=== PATIENT | male | born 1955 | race Caucasian/White ===

== ENCOUNTER 2019-12-11 06:35 | Day surgery (SDC) | payer MEDICARE ==
--- NOTE | 2019-12-10 10:12 | NUR ---
T-98.0 ORAL, BP-139/66 LEFT ARM, P-74, SAO2%-100 ROOM AIR
[2019-12-10 10:36] LABS: HEMOGLOBIN 12.6 g/dL (13.5-17.5); MCH 33.5 pg (26.0-34.0); MCHC 34.1 g/dL (31.0-37.0); MCV 98.4 fL (80.0-100.0); MEAN PLATELET VOLUME 8.7 fL (7.4-10.4); PLATELET COUNT 70 10x3/uL (130-400); RBC 3.76 10x6/uL (4.20-6.10); RDW 14.5 % (11.5-14.5); WBC 5.2 10x3/uL (4.8-10.8)
[2019-12-10 10:50] LABS: APTT 35.2 SECONDS (22.8-39.4); INR 1.23 (0.85-1.17); PROTIME 15.4 SECONDS (11.6-15.0)
[2019-12-10 10:59] LABS: ALBUMIN 3.6 g/dL (3.4-5.0); ALKALINE PHOSPHATASE 218 U/L (30-120); ALT (SGPT) 32 U/L (10-68); BILIRUBIN - TOTAL 2.04 mg/dL (0.2-1.3); CALC OSMOLALITY 278 mosm/kg (275-300); CALCIUM 8.7 mg/dL (8.5-10.1); CARBON DIOXIDE 27.6 mmol/L (21.0-32.0); CHLORIDE - SERUM 105 mmol/L (98-107); GLUCOSE 113 mg/dL (74-106); POTASSIUM - SERUM 4.2 mmol/L (3.5-5.1); PROTEIN - SERUM 6.3 g/dL (6.4-8.2); SODIUM 138 mmol/L (136-145); UREA NITROGEN 17 mg/dL (7-18); eGFR NON AFRICAN AMERICAN 79 mL/min (90-120)
[2019-12-10 11:38] LABS: PLATELET ESTIMATE DECREASED
[~2019-12-11] VITALS: Ht 172.7 cm; Wt 72.1 kg
--- NOTE | ~2019-12-11 | OP ---
PATIENT NAME: MIGUEL GRANT MEDICAL RECORD: [id number] :51 LOCATION:D.OPS ADMISSION DATE: SURGEON: MAYKEL STYLES MD DATE OF OPERATION: 12/11/2019 PREOPERATIVE DIAGNOSES: 1. Ventral hernia. 2. Chronic hepatitis C. 3. Liver cirrhosis. 4. Thrombocytopenia secondary to cirrhosis. 5. Nicotine dependence. POSTOPERATIVE DIAGNOSES: 1. Ventral hernia. 2. Chronic hepatitis C. 3. Liver cirrhosis. 4. Thrombocytopenia secondary to cirrhosis. 5. Nicotine dependence. PROCEDURE: Ventral hernia repair with 6.[address] mesh. SURGEON: Maykel Styles MD REPORT OF PROCEDURE: The patient's abdomen was prepped and draped in sterile fashion. A semicircular incision was made on the inferior aspect of the umbilicus. Electrocautery was used to dissect through the subcutaneous tissues. We came around the umbilical stalk and transected this to elevate the umbilicus. We encountered a large hernia sac which had no contents presently. This hernia sac was penetrated. We were able to inspect and see there was no sign of any bowel contents. We opened up this hernia sac and then using a clamp and tie technique, we transected the hernia sac at its base near the fascia using 3-0 silk ties. Once we had the hernia sac completely excised, it was sent off for permanent specimen. I then felt around on the abdominal wall and there was no sign of any other masses or lesions. The patient did have another small hernia defect just superior and to the right of this one. There was just a small fascial bridge present which was transected. This left a 2.5 cm diameter hernia defect. We undermined the fatty tissue off of the fascia and then inserted a 6.[address] mesh in an underlay fashion. This was sutured down on all 4 sides using interrupted 0 Prolenes times 4. The fascia was then closed longitudinally in the midline using a running 0 Vicryl. We irrigated out the wound with normal saline. We inspected and assured there was no sign of any active bleeding, which there was none. The umbilicus was then tacked down to the fascia using interrupted 3-0 Vicryls times 2. We infused 10 mL of 0.25% Marcaine plain into the surrounding tissues. The subcutaneous tissues were all reapproximated with interrupted 3-0 Vicryl and the skin was closed with running subcutaneous 5-0 Monocryl. COMPLICATIONS: None. CONDITION: Stable. ANESTHESIA: General endotracheal and local. BLOOD LOSS: Minimal. OPERATIVE REPORT [id number] MIGUEL GRANT TRANSINT:[id number] Voice Confirmation ID: [id number] DOCUMENT ID: [id number] MAYKEL STYLES MD CC: KEVIN BLANKENSHIP [id number] DICTATION DATE: 12/11/19940 [employer] TECHNICAL DIRECTOR: 12/11/19 1520 [facility] 12/11/19 [id number] [place] [address]
[~2019-12-11 06:35] MED LIST: ALDACTONE100 MG PO; FUROSEMIDE40 MG PO
[2019-12-11 07:44] VITALS: BP 126/65; Ht 172.7 cm; Wt 72.1 kg
[2019-12-11] MEDS ORDERED: HYDROCODONE-IB1 EAC3 PO (09:35)
--- NOTE | 2019-12-11 10:18 | NUR ---
1010 ICE PACK TO ABDOMEN, HOB ELEVATED. CALL LIGHT AT SIDE.
== END 2019-12-11 12:45 | disposition home or self-care (01) ==
LOC: D.OPS 06:35 → D.PAN 08:30 → D.OPS 08:30
PROVIDERS: Anesthesiology; ATTEND Surgery
DX: K43.9 Ventral hernia without obstruction or gangrene (principal); K74.60 Unspecified cirrhosis of liver; D69.6 Thrombocytopenia, unspecified; F17.200 Nicotine dependence, unspecified, uncomplicated; B18.2 Chronic viral hepatitis C

== ENCOUNTER → 2020-01-25 12:45 | Outpatient (CLI) | payer MEDICARE ==
[~2020-01-25 12:45] MED LIST changes: +HYDROCODONE-IB1 EAC3 PO
== END | disposition home or self-care (01) ==
LOC: D.CT 01-18 13:00
PROVIDERS: ATTEND Surgery
DX: R10.9 Unspecified abdominal pain (principal)